=== PATIENT | female | born 1925 | race Caucasian/White ===

== ENCOUNTER 2016-03-30 14:18 | Outpatient (CLI) | payer OTHER | END 2016-03-30 14:19 | disposition home or self-care (01) | LOC: AMBL 14:18 | PROVIDERS: ATTEND Emergency Medicine | DX: M25.552 Pain in left hip (principal); M79.652 Pain in left thigh; W19.XXXA Unspecified fall, initial encounter; Y92.512 Supermarket, store or market as the place of occurrence of the external cause ==

== ENCOUNTER 2016-04-16 09:48 | Outpatient (CLI) | END 2016-04-16 09:49 | LOC: AMBL 09:48 | PROVIDERS: ATTEND Internal Medicine Geriatric Medicine | DX: M54.5 Low back pain (principal); M25.552 Pain in left hip; W18.39XA Other fall on same level, initial encounter; Y92.122 Bedroom in nursing home as the place of occurrence of the external cause ==

== ENCOUNTER 2016-06-14 19:23 | Outpatient (CLI) | END 2016-06-14 19:24 | disposition home or self-care (01) | LOC: AMBL 19:23 | PROVIDERS: ATTEND Emergency Medicine | DX: Z04.3 Encounter for examination and observation following other accident (principal); W18.30XA Fall on same level, unspecified, initial encounter; Y92.129 Unspecified place in nursing home as the place of occurrence of the external cause ==

== ENCOUNTER 2016-06-15 12:49 | Outpatient (CLI) ==
[2016-06-15 12:56] LABS: BILIRUBIN,URINE Negative (NEGATIVE); KETONES,URINE Negative (NEGATIVE); LEUKOCYTE ESTERASE ,URINE 3+ (NEGATIVE); NITRITE,URINE Negative (NEGATIVE); PH,URINE 6.5 (5-9); PROTEIN,URINE Trace (NEGATIVE); URINE, BLOOD Negative (NEGATIVE)
[2016-06-15 13:11] LABS: ADD URINE MICROSCOPIC YES; BACTERIA,URINE 3+ (NOT PRESENT)
== END 2016-06-15 12:50 | disposition home or self-care (01) ==
LOC: NONPT 12:49
PROVIDERS: ATTEND Internal Medicine
DX: R41.0 Disorientation, unspecified (principal); R50.9 Fever, unspecified
CPT/HCPCS: 80053; 81001; 85025; 87086; 87186; 87804

== ENCOUNTER 2016-06-15 19:00 | Outpatient (CLI) ==
[2016-06-15 19:15] LABS: BASOPHILS # (AUTO) 0.1 K/uL (0-0.2); BASOPHILS % (AUTO) 0.3 % (0.0-3.0); EOSINOPHILS % (AUTO) 0.2 % (0.0-7.0); HEMATOCRIT 38.1 % (37.0-47.0); HEMOGLOBIN 13.1 g/dl (12.0-16.0); IMMATURE GRANULOCYTE % (AUTO) 0.4 % (0.0-5.0); LYMPHOCYTES # (AUTO) 0.9 K/uL (0.60-3.4); LYMPHOCYTES % (AUTO) 4.9 (10.0-50.0); MEAN CORPUSCULAR HEMOGLOBIN 27.6 pg (27.0-31.0); MEAN CORPUSCULAR HGB CONC 34.4 (31.8-35.4); MEAN CORPUSCULAR VOLUME 80.4 fl (81.0-99.0); MONOCYTES % (AUTO) 5.4 (0-10); NEUTROPHILS # (AUTO) 15.9 K/ul (2.0-6.9); NEUTROPHILS % (AUTO) 88.8; PLATELET COUNT 212 10^3/uL (140-440); RED BLOOD COUNT 4.74 10^6/ul (4.20-5.40); WHITE BLOOD COUNT 17.89 K/ul (4.6-10.2)
[2016-06-15 19:35] LABS: ALBUMIN 3.5 g/dL (3.4-5.0); ALBUMIN/GLOBULIN RATIO 0.92; ANION GAP 16.2; BILIRUBIN,TOTAL 1.31 mg/dL (0.00-1.20); BUN/CREATININE RATIO 23.18; CALCIUM 9.1 mg/dL (8.2-10.2); CREATININE 0.69 mg/dL (0.60-1.30); POTASSIUM 3.2 mmol/L (3.5-5.10); TOTAL PROTEIN 7.3 g/dL (5.8-8.1)
[2016-06-15 19:36] LABS: FLU INTERNAL QC INTERNAL QC VALID; RAPID FLU A NEGATIVE (NEGATIVE); RAPID FLU B NEGATIVE (NEGATIVE)
== END 2016-06-15 19:01 | disposition home or self-care (01) ==
LOC: NONPT 19:00
PROVIDERS: ATTEND Emergency Medicine
DX: R50.9 Fever, unspecified (principal); R41.0 Disorientation, unspecified
CPT/HCPCS: 80053; 85025; 87804

== ENCOUNTER 2016-06-24 09:43 | Outpatient (CLI) ==
--- NOTE | 2016-06-24 10:23 | DI ---
EXAM: Radiographs, bilateral rib HISTORY: Initial presentation for rib pain following a fall. COMPARISON: Chest CT 08/08/2013. TECHNIQUE: Six views. FINDINGS: No rib fracture identified. Interstitial changes noted in both lung bases. No pleural e ffusion or pneumothorax detected. Old L1 vertebral compression deformity noted. IMPRESSION: No acute rib fracture.
== END 2016-06-24 09:44 | disposition home or self-care (01) ==
LOC: RAD 09:43
PROVIDERS: ATTEND Internal Medicine
DX: R07.81 Pleurodynia (principal); W19.XXXA Unspecified fall, initial encounter

== ENCOUNTER 2016-11-25 14:38 | Outpatient (CLI) ==
[2016-11-25 14:47] LABS: ADD URINE MICROSCOPIC YES; BILIRUBIN,URINE Negative (NEGATIVE); KETONES,URINE Negative (NEGATIVE); LEUKOCYTE ESTERASE ,URINE 3+ (NEGATIVE); NITRITE,URINE Negative (NEGATIVE); PH,URINE 8.5 (5-9); PROTEIN,URINE 1+ (NEGATIVE); URINE, BLOOD 2+ (NEGATIVE)
[2016-11-25 14:52] LABS: BACTERIA,URINE 3+ (NOT PRESENT)
== END 2016-11-25 14:39 | disposition home or self-care (01) ==
LOC: NONPT 14:38
PROVIDERS: ATTEND Internal Medicine
DX: R30.0 Dysuria (principal)
CPT/HCPCS: 81001; 87086; 87186

== ENCOUNTER 2017-03-16 08:00 | Outpatient (CLI) | END 2017-03-16 08:01 | disposition home or self-care (01) | LOC: NONPT 08:00 | PROVIDERS: ATTEND Internal Medicine | DX: D50.9 Iron deficiency anemia, unspecified (principal); I10 Essential (primary) hypertension; E11.9 Type 2 diabetes mellitus without complications | CPT/HCPCS: 80053; 85025 ==

== ENCOUNTER 2017-03-19 14:42 | Outpatient (CLI) | END 2017-03-19 14:43 | disposition home or self-care (01) | LOC: NONPT 14:42 | PROVIDERS: ATTEND Internal Medicine | DX: Z87.440 Personal history of urinary (tract) infections (principal) | CPT/HCPCS: 81001 ==